=== PATIENT | male | born 1950 | race Hispanic/Latino ===

== ENCOUNTER 2017-05-02 10:21 | Emergency (ER) | payer OTHER ==
[2017-05-02 10:41] LABS: BASOPHILS % (AUTO) 0.6 % (0.0-5.0); EOSINOPHILS % (AUTO) 2.7 % (0.0-8.0); HEMATOCRIT 47.2 % (42-54); LYMPHOCYTES % (AUTO) 23.8 % (21.0-51.0); MEAN CORPUSCULAR HEMOGLOBIN 30.6 pg (27.0-33.0); MEAN CORPUSCULAR HGB CONC 34.9 g/dL (32.0-36.0); MEAN CORPUSCULAR VOLUME 87.8 fL (79-99); MONOCYTES % (AUTO) 7.1 % (3.0-13.0); NEUTROPHILS % (AUTO) 65.8 % (40.0-77.0); NUCLEATED RED BLOOD CELLS 0.1 % (0.0-0.19); PLATELET COUNT (AUTO) 219 K/uL (130-400); RED BLOOD CELL COUNT(AUTO) 5.38 MIL/uL (4.50-6.20); RED CELL DISTRIBUTION WIDTH 12.7 % (11.0-15.5); WHITE BLOOD COUNT (AUTO) 6.9 K/uL (4.8-10.8)
[2017-05-02 10:53] LABS: POTASSIUM 3.7 mmol/L (3.5-5.1)
[2017-05-02 10:55] LABS: INR 0.9 (0.85-1.15); PARTIAL THROMBOPLASTIN TIME 27.3 SEC (26.3-35.5); PROTHROMBIN TIME 9.5 SEC (9.6-11.6)
[2017-05-02 10:57] LABS: ALBUMIN 3.8 g/dL (3.5-5.0); BILIRUBIN,TOTAL 0.6 mg/dL (0.2-1.0); TOTAL PROTEIN, SERUM 7.4 g/dL (6.0-8.3)
[2017-05-02 10:58] LABS: AMPHET/METH SCREEN,URINE NEGATIVE (NEGATIVE); BARBITURATE SCREEN, URINE NEGATIVE (NEGATIVE); BENZODIAZEPINES SCREEN,URINE NEGATIVE (NEGATIVE); CANNABINOID SCREEN,URINE NEGATIVE (NEGATIVE); COCAINE SCREEN,URINE NEGATIVE (NEGATIVE); OPIATE SCREEN,URINE NEGATIVE (NEGATIVE); PHENCYCLIDINE SCREEN,URINE NEGATIVE (NEGATIVE)
[2017-05-02 11:01] LABS: RAPID GROUP A STREP NEGATIVE (NEGATIVE)
[2017-05-02] MEDS ORDERED: ACETAMINOPHEN-CODEINE ELIXIR 5 ML UDCUP ONE (11:14)
[2017-05-02] MEDS ORDERED: HYDROXYZINE HCL 25 MG TABLET ONE (11:17)
[2017-05-02 11:33] LABS: B-TYPE NATRIURETIC PEPTIDE 92 pg/mL (0-100)
== END 2017-05-02 13:52 | disposition home or self-care (01) ==
LOC: EDH 10:21
DX: R07.89 Other chest pain (principal); F41.9 Anxiety disorder, unspecified; F43.9 Reaction to severe stress, unspecified; E11.9 Type 2 diabetes mellitus without complications; E78.5 Hyperlipidemia, unspecified; I10 Essential (primary) hypertension; Z79.82 Long term (current) use of aspirin; Z79.899 Other long term (current) drug therapy; Z72.0 Tobacco use
CPT/HCPCS: 36415; 71045; 80053; 80305; 83605; 83690; 83880; 84484; 85025; 85610; 85730; 87804; 87880; 93005

== ENCOUNTER 2017-08-15 10:40 | Inpatient (IN) | payer OTHER ==
[~2017-08-15] VITALS: Ht 180.3 cm; Wt 84.8 kg
[2017-08-15 11:19] LABS: CREATININE 1.1 mg/dL (0.5-1.5); POTASSIUM 4.4 mmol/L (3.5-5.1)
[2017-08-15 11:25] LABS: ALBUMIN 3.5 g/dL (3.5-5.0); BASOPHILS % (AUTO) 0.4 % (0.0-5.0); BILIRUBIN,TOTAL 0.4 mg/dL (0.2-1.0); EOSINOPHILS % (AUTO) 3.3 % (0.0-8.0); HEMATOCRIT 46.5 % (42-54); LYMPHOCYTES % (AUTO) 23.8 % (21.0-51.0); MEAN CORPUSCULAR HEMOGLOBIN 32.5 pg (27.0-33.0); MEAN CORPUSCULAR HGB CONC 35.7 g/dL (32.0-36.0); MONOCYTES % (AUTO) 7.5 % (3.0-13.0); NUCLEATED RED BLOOD CELLS 0.1 % (0.0-0.19); PLATELET COUNT (AUTO) 220 K/uL (130-400); RED BLOOD CELL COUNT(AUTO) 5.11 MIL/uL (4.50-6.20); RED CELL DISTRIBUTION WIDTH 13.6 % (11.0-15.5); TOTAL PROTEIN, SERUM 7.3 g/dL (6.0-8.3); WHITE BLOOD COUNT (AUTO) 6.7 K/uL (4.8-10.8)
[2017-08-15 11:35] LABS: APPEARANCE,URINE Clear (CLEAR); BILIRUBIN,URINE Negative (NEGATIVE); COLOR,URINE Yellow (YELLOW); GLUCOSE, URINE (UA) Negative (NEGATIVE); KETONES,URINE Negative (NEGATIVE); LEUKOCYTE ESTERASE ,URINE Negative (NEGATIVE); NITRATE,URINE Negative (NEGATIVE); OCCULT BLOOD,URINE Negative (NEGATIVE); PROTEIN,URINE Negative (NEGATIVE); UROBILINOGEN,URINE 0.2 mg/dL (0.2-1.0)
[2017-08-15 11:41] LABS: AMPHET/METH SCREEN,URINE NEGATIVE (NEGATIVE); BARBITURATE SCREEN, URINE NEGATIVE (NEGATIVE); BENZODIAZEPINES SCREEN,URINE NEGATIVE (NEGATIVE); CANNABINOID SCREEN,URINE NEGATIVE (NEGATIVE); COCAINE SCREEN,URINE NEGATIVE (NEGATIVE); OPIATE SCREEN,URINE NEGATIVE (NEGATIVE); PHENCYCLIDINE SCREEN,URINE NEGATIVE (NEGATIVE)
[2017-08-15 11:52] LABS: INR 0.91 (0.85-1.15); PARTIAL THROMBOPLASTIN TIME 30.1 SEC (26.3-35.5); PROTHROMBIN TIME 9.6 SEC (9.6-11.6)
[2017-08-15] MEDS ORDERED: ACETAMINOPHEN 325 MG TAB ONE (13:06)
[2017-08-15] MEDS ORDERED: ASPIRIN 325 MG TABLET ONE (13:06)
[2017-08-15] MEDS ORDERED: NIFEDIPINE ER 30 MG TAB PO ONE (14:09)
[2017-08-15 16:15] VITALS: BP 179/108
[2017-08-15] MEDS ORDERED: HYDRALAZINE HCL 20 MG/ML VIAL ONE (16:38)
[2017-08-15] MEDS ORDERED: DEXTROSE 50%-WATER 50 ML DISP.SYRIN IV PRN (16:45)
[2017-08-15] MEDS ORDERED: HYDRALAZINE HCL 20 MG/ML VIAL IV PRN (16:45)
[2017-08-15] MEDS ORDERED: GLUCAGON 1MG KIT 1 MG ML IM PRN (16:45)
[2017-08-15 20:10] VITALS: BP 138/100
[2017-08-15] MEDS: INSULIN HUMULIN R 100 UNIT/ML 3ML SQ SCH (21:00)
[2017-08-15] MEDS: ACETAMINOPHEN 325 MG TAB PO PRN (21:02)
[2017-08-15 22:02] VITALS: BP 148/86
[2017-08-16 00:20] VITALS: BP 153/96
[2017-08-16] MEDS: ACETAMINOPHEN 325 MG TAB PO PRN ×3 (01:06→20:21)
[2017-08-16 01:18] VITALS: BP 151/97
[2017-08-16 04:20] VITALS: BP 151/96
[2017-08-16 05:29] LABS: HEMATOCRIT 47.9 % (42-54); MEAN CORPUSCULAR HEMOGLOBIN 31.8 pg (27.0-33.0); MEAN CORPUSCULAR HGB CONC 35.2 g/dL (32.0-36.0); MEAN CORPUSCULAR VOLUME 90.4 fL (79-99); PLATELET COUNT (AUTO) 222 K/uL (130-400); RED BLOOD CELL COUNT(AUTO) 5.29 MIL/uL (4.50-6.20); RED CELL DISTRIBUTION WIDTH 13.4 % (11.0-15.5); WHITE BLOOD COUNT (AUTO) 7.9 K/uL (4.8-10.8)
[2017-08-16 06:01] LABS: CREATININE 1.1 mg/dL (0.5-1.5); POTASSIUM 3.5 mmol/L (3.5-5.1)
[2017-08-16] MEDS: INSULIN HUMULIN R 100 UNIT/ML 3ML SQ SCH ×4 (06:30→21:00)
[2017-08-16 08:00] VITALS: BP 155/97
[2017-08-16] MEDS: NIFEDIPINE ER 30 MG TAB PO SCH (08:20)
[2017-08-16 11:00] VITALS: BP 164/97
[2017-08-16] MEDS: HYDRALAZINE HCL 20 MG/ML VIAL IV PRN (12:23)
[2017-08-16 16:00] VITALS: BP 163/91
[2017-08-17] VITALS (10 sets, daily range): BP systolic 125–170; BP diastolic 68–102
[2017-08-17] MEDS: HYDRALAZINE HCL 20 MG/ML VIAL IV PRN (00:20)
[2017-08-17] MEDS ORDERED: ALPRAZOLAM 0.5 MG TABLET PO ONE (01:30)
[2017-08-17] MEDS: INSULIN HUMULIN R 100 UNIT/ML 3ML SQ SCH ×4 (06:32→22:49)
[2017-08-17 06:55] LABS: BASOPHILS % (AUTO) 0.4 % (0.0-5.0); EOSINOPHILS % (AUTO) 2.8 % (0.0-8.0); HEMATOCRIT 46.5 % (42-54); LYMPHOCYTES % (AUTO) 22.7 % (21.0-51.0); MEAN CORPUSCULAR HEMOGLOBIN 31.8 pg (27.0-33.0); MEAN CORPUSCULAR HGB CONC 35.1 g/dL (32.0-36.0); MEAN CORPUSCULAR VOLUME 90.7 fL (79-99); MONOCYTES % (AUTO) 8.9 % (3.0-13.0); NEUTROPHILS % (AUTO) 65.2 % (40.0-77.0); NUCLEATED RED BLOOD CELLS 0.1 % (0.0-0.19); PLATELET COUNT (AUTO) 217 K/uL (130-400); RED BLOOD CELL COUNT(AUTO) 5.13 MIL/uL (4.50-6.20); RED CELL DISTRIBUTION WIDTH 13.3 % (11.0-15.5); WHITE BLOOD COUNT (AUTO) 8.2 K/uL (4.8-10.8)
[2017-08-17 07:12] LABS: CREATININE 1.1 mg/dL (0.5-1.5); POTASSIUM 3.4 mmol/L (3.5-5.1)
[2017-08-17] MEDS: NIFEDIPINE ER 30 MG TAB PO SCH (08:57)
[2017-08-17] MEDS ORDERED: METOPROLOL TARTRATE 25 MG TAB PO SCH (13:00)
[2017-08-17] MEDS ORDERED: ASPIRIN 325 MG TABLET PO SCH (14:00)
[2017-08-17] MEDS: ENOXAPARIN SODIUM 80 MG/0.8 ML SQ SCH ×2 (15:23→20:25)
[2017-08-17] MEDS: NITROGLYCERIN 1GM/1 INCH PACKET TD SCH (15:23)
[2017-08-17] MEDS: METOPROLOL TARTRATE 25 MG TAB PO SCH (20:24)
[2017-08-17] MEDS ORDERED: LORAZEPAM 0.5 MG TABLET PO SCH (21:00)
[2017-08-18] VITALS: BP 127/84
[2017-08-18 04:00] VITALS: BP 139/93
[2017-08-18] MEDS: NITROGLYCERIN 1GM/1 INCH PACKET TD SCH ×2 (04:36→11:16)
[2017-08-18 05:04] LABS: HEMOGLOBIN A1C 7.1 % (4.0-6.0)
[2017-08-18 05:22] LABS: MAGNESIUM 2.1 mg/dL (1.80-2.40); POTASSIUM 3.5 mmol/L (3.5-5.1); THYROID STIMULATING HORMONE 3.71 uIU/mL (0.36-3.74)
[2017-08-18] MEDS ORDERED: REGADENOSON 0.4 MG/5 ML PF SYG IVP SCH (07:30)
[2017-08-18] MEDS: INSULIN HUMULIN R 100 UNIT/ML 3ML SQ SCH (07:30)
[2017-08-18 08:20] VITALS: BP 139/92
[2017-08-18] MEDS ORDERED: LOSARTAN 50 MG TABLET PO SCH (09:00)
[2017-08-18] MEDS: ENOXAPARIN SODIUM 80 MG/0.8 ML SQ SCH (11:15)
[2017-08-18] MEDS: METOPROLOL TARTRATE 25 MG TAB PO SCH (11:16)
[2017-08-18 12:19] VITALS: BP 156/91
[2017-08-18 16:00] VITALS: BP 140/97
== END 2017-08-18 18:35 | disposition home or self-care (01) | DRG 305 ==
LOC: EDH 10:40 → EDHIP 12:53 → OBSVTOIN 12:53 → 3DH 16:09 → 2DH 08-17 15:59
PROVIDERS: ADMIT Internal Medicine Nephrology; ATTEND Internal Medicine Nephrology
DX: I16.0 Hypertensive urgency (principal); E11.21 Type 2 diabetes mellitus with diabetic nephropathy; G93.89 Other specified disorders of brain; I20.0 Unstable angina; E78.5 Hyperlipidemia, unspecified; E87.6 Hypokalemia; F10.10 Alcohol abuse, uncomplicated; F17.210 Nicotine dependence, cigarettes, uncomplicated; I10 Essential (primary) hypertension; Z86.73 Personal history of transient ischemic attack (TIA), and cerebral infarction without residual deficits; Z83.3 Family history of diabetes mellitus; Z82.49 Family history of ischemic heart disease and other diseases of the circulatory system
CPT/HCPCS: 36415; 70450; 71045; 72100; 76770; 78452; 80048; 80053; 80061; 80305; 81003; 82550; 82948; 83036; 83735; 83835; 84443; 84484; 85025; 85027; 85610; 85730; 86592; 93005; 93017; 93306; 96374; A9500; G0480; J0360; J1650; J1815; J2785

== ENCOUNTER 2017-09-03 07:25 | Inpatient (IN) | payer OTHER ==
[~2017-09-03] VITALS: Ht 180.3 cm; Wt 85.2 kg
[2017-09-03] MEDS ORDERED: SODIUM CHLORIDE 0.9% 1000ML 1,000 ML IV ONE (08:10)
[2017-09-03] MEDS ORDERED: LABETALOL HCL 5 MG/ML 20ML VIAL IV ONE (08:11)
[2017-09-03 08:17] LABS: BASOPHILS % (AUTO) 0.8 % (0.0-5.0); EOSINOPHILS % (AUTO) 3.4 % (0.0-8.0); HEMATOCRIT 45.6 % (42-54); LYMPHOCYTES % (AUTO) 22.9 % (21.0-51.0); MEAN CORPUSCULAR HEMOGLOBIN 31.2 pg (27.0-33.0); MEAN CORPUSCULAR HGB CONC 34.5 g/dL (32.0-36.0); MEAN CORPUSCULAR VOLUME 90.2 fL (79-99); MONOCYTES % (AUTO) 8.6 % (3.0-13.0); NEUTROPHILS % (AUTO) 64.3 % (40.0-77.0); NUCLEATED RED BLOOD CELLS 0.1 % (0.0-0.19); PLATELET COUNT (AUTO) 219 K/uL (130-400); RED BLOOD CELL COUNT(AUTO) 5.05 MIL/uL (4.50-6.20); RED CELL DISTRIBUTION WIDTH 12.4 % (11.0-15.5)
[2017-09-03 08:43] LABS: PARTIAL THROMBOPLASTIN TIME 29.9 SEC (26.3-35.5)
[2017-09-03 08:58] LABS: CREATININE 1.1 mg/dL (0.5-1.5); INR 0.89 (0.85-1.15); PROTHROMBIN TIME 9.4 SEC (9.6-11.6)
[2017-09-03] MEDS ORDERED: ONDANSETRON HCL 4 MG/2 ML VIAL ONE (08:58)
[2017-09-03] MEDS ORDERED: MORPHINE SULFATE 4 MG/1ML SYG ONE (08:58)
[2017-09-03 09:14] LABS: ALBUMIN 3.6 g/dL (3.5-5.0); BILIRUBIN,TOTAL 0.4 mg/dL (0.2-1.0); TOTAL PROTEIN, SERUM 7.4 g/dL (6.0-8.3)
[2017-09-03 09:31] LABS: APPEARANCE,URINE Clear (CLEAR); BILIRUBIN,URINE Negative (NEGATIVE); COLOR,URINE Yellow (YELLOW); GLUCOSE, URINE (UA) 250 mg/dL (NEGATIVE); KETONES,URINE Negative (NEGATIVE); LEUKOCYTE ESTERASE ,URINE Negative (NEGATIVE); NITRATE,URINE Negative (NEGATIVE); OCCULT BLOOD,URINE Negative (NEGATIVE); PROTEIN,URINE Trace (NEGATIVE); UROBILINOGEN,URINE 0.2 mg/dL (0.2-1.0)
[2017-09-03 09:49] LABS: BACTERIA,URINE Few /HPF (None Seen)
[2017-09-03 09:51] LABS: RBC,URINE None Seen /HPF (0-1); WBC,URINE 0-1 /HPF (0-1)
[2017-09-03 09:52] LABS: SQUAMOUS EPITHELIAL CELL,UR Rare /HPF (0-2)
[2017-09-03] MEDS ORDERED: CALCIUM CHLORIDE 100 MG/ML 10 ML SYG IVP ONE (12:00)
[2017-09-03] MEDS ORDERED: HEPARIN SODIUM 1000UNIT/ML 10ML VIAL IV ONE (12:00)
[2017-09-03] MEDS ORDERED: HEPARIN SODIUM 10000 UNIT/ML 1ML VIAL IJ ONE (12:00)
[2017-09-03 14:04] VITALS: BP 194/117
[2017-09-03] MEDS ORDERED: ASPI-1197 PO (14:21)
[2017-09-03] MEDS ORDERED: METO25TA6 PO (14:21)
[2017-09-03] MEDS ORDERED: METF500T6 PO (14:21)
[2017-09-03] MEDS ORDERED: LOSA50TA37 PO (14:21)
[2017-09-03] MEDS ORDERED: ATOR10TA69 PO (14:21)
[2017-09-03] MEDS ORDERED: HYDRALAZINE HCL 20 MG/ML VIAL IV PRN (14:45)
[2017-09-03] MEDS ORDERED: HYDRALAZINE HCL 20 MG/ML VIAL ONE (14:47)
[2017-09-03 15:58] VITALS: BP 167/96
[2017-09-03 17:46] LABS: CREATINE KINASE MB 6.8 ng/mL (0.5-3.6)
[2017-09-03 17:50] LABS: TROPONIN I 1.3 ng/mL (0.00-0.06)
[2017-09-03 19:47] VITALS: BP 165/89
[2017-09-03] MEDS: METOPROLOL TARTRATE 25 MG TAB PO SCH (19:55)
[2017-09-03] MEDS: ATORVASTATIN CALCIUM 10 MG TABLET PO SCH (19:55)
[2017-09-03] MEDS: FAMOTIDINE 20MG TAB 20 MG TAB PO SCH (19:56)
[2017-09-03] MEDS: INSULIN HUMULIN R 100 UNIT/ML 3ML SQ SCH (20:17)
[2017-09-03] MEDS ORDERED: ENOXAPARIN SODIUM 1 MG/KG SQ SCH (21:00)
[2017-09-04] VITALS (7 sets, daily range): BP systolic 135–183; BP diastolic 80–99
[2017-09-04 01:43] LABS: CREATINE KINASE MB 5.1 ng/mL (0.5-3.6)
[2017-09-04 01:55] LABS: TROPONIN I 3.62 ng/mL (0.00-0.06)
[2017-09-04 04:21] LABS: HEMATOCRIT 40.5 % (42-54); MEAN CORPUSCULAR HEMOGLOBIN 32.4 pg (27.0-33.0); MEAN CORPUSCULAR HGB CONC 36.2 g/dL (32.0-36.0); MEAN CORPUSCULAR VOLUME 89.4 fL (79-99); PLATELET COUNT (AUTO) 207 K/uL (130-400); RED BLOOD CELL COUNT(AUTO) 4.53 MIL/uL (4.50-6.20); RED CELL DISTRIBUTION WIDTH 12.6 % (11.0-15.5); WHITE BLOOD COUNT (AUTO) 8.1 K/uL (4.8-10.8)
[2017-09-04 04:33] LABS: CREATININE 1.1 mg/dL (0.5-1.5); POTASSIUM 3.6 mmol/L (3.5-5.1)
[2017-09-04] MEDS: INSULIN HUMULIN R 100 UNIT/ML 3ML SQ SCH ×4 (05:41→21:13)
[2017-09-04] MEDS ORDERED: ENOXAPARIN SODIUM 1 MG/KG SQ SCH (07:20)
[2017-09-04] MEDS ORDERED: ACETAMINOPHEN 325 MG TAB ONE (07:41)
[2017-09-04] MEDS: ASPIRIN 81MG TAB.CHEW PO SCH (07:45)
[2017-09-04] MEDS: METFORMIN HCL 500 MG TABLET PO SCH (07:45)
[2017-09-04] MEDS: FAMOTIDINE 20MG TAB 20 MG TAB PO SCH ×2 (07:45→20:02)
[2017-09-04] MEDS: METOPROLOL TARTRATE 25 MG TAB PO SCH ×2 (07:45→20:02)
[2017-09-04] MEDS: ENOXAPARIN SODIUM 80 MG/0.8 ML SQ SCH ×3 (07:46→20:18)
[2017-09-04] MEDS ORDERED: ENOXAPARIN SODIUM 40 MG/0.4 ML SYRINGE SQ SCH (09:00)
[2017-09-04] MEDS ORDERED: LOSARTAN 50 MG TABLET PO SCH (09:00)
[2017-09-04] MEDS: NITROGLYCERIN 1GM/1 INCH PACKET TD SCH ×3 (09:25→20:03)
[2017-09-04] MEDS ORDERED: SODIUM CHLORIDE 0.9% 500ML 500 ML IV SCH (12:54)
[2017-09-04] MEDS ORDERED: CLOPIDOGREL BISULFATE 75 MG TAB PO SCH (13:00)
[2017-09-04] MEDS: ATORVASTATIN CALCIUM 10 MG TABLET PO SCH (20:02)
[2017-09-05] VITALS (15 sets, daily range): BP systolic 118–180; BP diastolic 63–99
[2017-09-05] MEDS: NITROGLYCERIN 1GM/1 INCH PACKET TD SCH ×4 (02:24→21:30)
[2017-09-05] MEDS: INSULIN HUMULIN R 100 UNIT/ML 3ML SQ SCH ×4 (06:21→21:00)
[2017-09-05] MEDS ORDERED: LIDOCAINE HCL 2% 20ML ONE (07:19)
[2017-09-05] MEDS ORDERED: ISOVUE-370 50ML VIAL IV ONE (07:19)
[2017-09-05] MEDS ORDERED: IOPAMIDOL-370 75 ML VIAL IV ONE (07:19)
[2017-09-05] MEDS ORDERED: HEPARIN SODIUM 1000UNIT/ML 10ML VIAL ONE (07:19)
[2017-09-05] MEDS: ENOXAPARIN SODIUM 80 MG/0.8 ML SQ SCH (07:48)
[2017-09-05] MEDS: METFORMIN HCL 500 MG TABLET PO SCH (07:48)
[2017-09-05] MEDS ORDERED: LABETALOL HCL 5 MG/ML 20ML VIAL IV ONE (08:00)
[2017-09-05] MEDS ORDERED: NITROGLYCERIN 4.1 GM SPRAY TL ONE (08:07)
[2017-09-05] MEDS ORDERED: NITROGLYCERIN 50 MG/D5% WATER 1 BOT ONE (08:07)
[2017-09-05] MEDS ORDERED: METOPROLOL TARTRATE 50 MG TAB ONE (08:13)
[2017-09-05] MEDS: METOPROLOL TARTRATE 50 MG TAB PO SCH ×3 (08:30→21:29)
[2017-09-05] MEDS ORDERED: SODIUM CHLORIDE 0.9% 1000ML 1,000 ML IV SCH (08:34)
[2017-09-05] MEDS ORDERED: ACETAMINOPHEN-CODEINE 300/30MG TAB PO PRN ×2 (08:45)
[2017-09-05] MEDS ORDERED: HYDROCHLOROTHIAZIDE 25 MG TABLET PO SCH (09:00)
[2017-09-05] MEDS: ASPIRIN 81MG TAB.CHEW PO SCH (09:00)
[2017-09-05] MEDS ORDERED: LOSARTAN 100 MG TABLET PO SCH (09:00)
[2017-09-05] MEDS: FAMOTIDINE 20MG TAB 20 MG TAB PO SCH ×2 (09:38→21:29)
[2017-09-05 15:10] LABS: HEMOGLOBIN A1C 7.7 % (4.0-6.0)
[2017-09-05 15:13] LABS: CHOLESTEROL 141 mg/dL (<200); HDL CHOLESTEROL 36 mg/dL (29-71); LDL DIRECT 82 mg/dL (0-99); TRIGLYCERIDES 205 mg/dL (30-200)
[2017-09-05] MEDS ORDERED: CEFUROXIME SODIUM 1.5 GM VIAL IVP SCH (15:30)
[2017-09-05] MEDS: ATORVASTATIN CALCIUM 10 MG TABLET PO SCH (21:29)
[2017-09-06] VITALS (12 sets, daily range): BP systolic 111–165; BP diastolic 55–91
[2017-09-06 03:37] LABS: HEMATOCRIT 39.7 % (42-54); MEAN CORPUSCULAR HEMOGLOBIN 31.3 pg (27.0-33.0); MEAN CORPUSCULAR HGB CONC 34.8 g/dL (32.0-36.0); MEAN CORPUSCULAR VOLUME 89.7 fL (79-99); PLATELET COUNT (AUTO) 203 K/uL (130-400); RED BLOOD CELL COUNT(AUTO) 4.42 MIL/uL (4.50-6.20); RED CELL DISTRIBUTION WIDTH 12.4 % (11.0-15.5)
[2017-09-06 03:47] LABS: INR 0.93 (0.85-1.15); PARTIAL THROMBOPLASTIN TIME 29.9 SEC (26.3-35.5); PROTHROMBIN TIME 9.8 SEC (9.6-11.6)
[2017-09-06 03:49] LABS: CREATININE 1.1 mg/dL (0.5-1.5); POTASSIUM 3.7 mmol/L (3.5-5.1)
[2017-09-06] MEDS: NITROGLYCERIN 1GM/1 INCH PACKET TD SCH (04:58)
[2017-09-06] MEDS ORDERED: BACITRACIN 50,000 UNIT VIAL ONE (05:32)
[2017-09-06] MEDS ORDERED: HEPARIN SODIUM 1000UNIT/ML 10ML VIAL ONE ×2 (05:32→07:18)
[2017-09-06] MEDS ORDERED: PAPAVERINE HCL 30 MG/ML 2ML VIAL ONE (05:32)
[2017-09-06] MEDS ORDERED: CEFUROXIME 1.5GM+NS 100ML 100 ML IV SCH ×2 (06:00→19:00)
[2017-09-06] MEDS: METOPROLOL TARTRATE 50 MG TAB PO SCH (06:12)
[2017-09-06] MEDS ORDERED: LIDOCAINE HCL MDV 0.5% 50ML VIAL IJ ONE (06:25)
[2017-09-06] MEDS ORDERED: DELNIDO FORMULA 0 BAG IV ONE (06:26)
[2017-09-06] MEDS ORDERED: THROMBIN-JMI 5000 UNIT/VIAL TP ONE (06:26)
[2017-09-06] MEDS ORDERED: NITROGLYCERIN 50 MG/D5% WATER 1 BOT ONE (06:33)
[2017-09-06] MEDS ORDERED: ROCURONIUM BROMIDE 10MG/1ML 5ML VL ONE ×3 (06:39→11:17)
[2017-09-06] MEDS ORDERED: NEOSTIGMINE 5MG/5ML SYR IV ONE (07:18)
[2017-09-06] MEDS ORDERED: PROTAMINE SULFATE 10 MG/ML 25ML VIAL IV ONE (07:18)
[2017-09-06] MEDS ORDERED: LIDOCAINE PF 2% 5ML ABBOJECT ONE (07:18)
[2017-09-06] MEDS ORDERED: GLYCOPYRROLATE 0.2 MG/ML 5 ML VIAL ONE (07:18)
[2017-09-06] MEDS ORDERED: ESMOLOL HCL 10 MG/ML 10 ML VIAL ONE (07:18)
[2017-09-06] MEDS ORDERED: MILRINONE-D5W 20 MG/100 ML 0 ML IV ONE (07:19)
[2017-09-06] MEDS ORDERED: FENTANYL CITRATE PF 50 MCG/1 ML 20ML VIAL IJ ONE (07:19)
[2017-09-06] MEDS ORDERED: MIDAZOLAM HCL 1 MG/ML 5ML VIAL ONE (07:19)
[2017-09-06] MEDS ORDERED: PROPOFOL 10 MG/ML 20ML VIAL IV ONE (07:19)
[2017-09-06] MEDS ORDERED: NOREPINEPHRINE BITARTRATE 1 MG/1 ML ML IV ONE ×2 (07:19→12:08)
[2017-09-06] MEDS ORDERED: AMINOCAPROIC ACID 250 MG/ML 20 ML VIAL IV ONE (07:19)
[2017-09-06] MEDS ORDERED: EPINEPHRINE 1 MG/ML AMPULE ONE (07:19)
[2017-09-06] MEDS: INSULIN HUMULIN R 100 UNIT/ML 3ML SQ SCH (07:30)
[2017-09-06] MEDS ORDERED: SODIUM BICARB 50MEQ 50ML VIAL ONE ×4 (09:26→16:36)
[2017-09-06 09:34] LABS: ABG BASE EXCESS 1.9 mmol/L (-2.0-3.0); ABG HCO3 26.1 mmol/L (21.0-28.0); ABG OXYGEN SATURATION 99.1 % (95.0-99.0); ABG PCO2 39 mmHg (35-48)
[2017-09-06] MEDS ORDERED: SODIUM CHLORIDE 0.9% 500ML 500 ML IV SCH (10:57)
[2017-09-06] MEDS ORDERED: NITROGLYCERIN 50 MG/D5% WATER 250 BOT IV SCH (11:00)
[2017-09-06] MEDS ORDERED: INSULIN REGULAR, HUMAN 3ML 100 UNIT in SODIUM CHLORIDE 0.9% 99 ML IV SCH ×2 (11:00)
[2017-09-06] MEDS ORDERED: NOREPINEPHRINE 4MG/NS 250ML 250 ML IV PRN (11:00)
[2017-09-06] MEDS ORDERED: MORPHINE SULFATE 2 MG/ML 1ML SYG IV PRN (11:00)
[2017-09-06] MEDS ORDERED: SODIUM CHLORIDE 0.9% 1000ML 1,000 ML IV SCH (11:00)
[2017-09-06] MEDS ORDERED: ONDANSETRON HCL 4 MG/2 ML VIAL IV PRN (11:00)
[2017-09-06] MEDS ORDERED: ACETAMINOPHEN 650 MG SUPPOSITORY RC PRN (11:00)
[2017-09-06] MEDS ORDERED: DEXTROSE 50%-WATER 50 ML DISP.SYRIN IV PRN (11:00)
[2017-09-06] MEDS ORDERED: POTASSIUM PHOS 15 mMOL+NS250ML 250 ML IV PRN (11:00)
[2017-09-06] MEDS ORDERED: EPINEPHRINE 2 MG in SODIUM CHLORIDE 0.9% 250 ML IV PRN (11:00)
[2017-09-06] MEDS ORDERED: ACETAMINOPHEN 325 MG TAB PO PRN (11:00)
[2017-09-06] MEDS ORDERED: SODIUM BICARB 8.4% 50ML SYRINGE IV PRN (11:00)
[2017-09-06] MEDS ORDERED: SODIUM CHLORIDE 0.9% 250 ML IV PRN (11:00)
[2017-09-06] MEDS ORDERED: GLUCAGON 1MG KIT 1 MG ML IM PRN (11:00)
[2017-09-06] MEDS ORDERED: SODIUM CHLORIDE 0.9% 10 ML VIAL IVP PRN (11:00)
[2017-09-06] MEDS ORDERED: AMINOCAPROIC ACID 15,000 MG in SODIUM CHLORIDE 0.9% 250 ML IV SCH (11:00)
[2017-09-06] MEDS ORDERED: NICARDIPINE HCL 100 MG in SODIUM CHLORIDE 0.9% 60 ML IV PRN (11:00)
[2017-09-06] MEDS ORDERED: PROPOFOL 1000 MG/100 ML 100 ML IV PRN (11:00)
[2017-09-06 11:07] LABS: ABG BASE EXCESS -1.5 mmol/L (-2.0-3.0); ABG HCO3 22.8 mmol/L (21.0-28.0); ABG OXYGEN SATURATION 99.5 % (95.0-99.0); ABG PCO2 37 mmHg (35-48)
[2017-09-06] MEDS ORDERED: CEFUROXIME SODIUM 1.5 GM VIAL ONE (12:35)
[2017-09-06 14:01] LABS: ABG BASE EXCESS -1.7 mmol/L (-2.0-3.0); ABG HCO3 23.3 mmol/L (21.0-28.0); ABG OXYGEN SATURATION 98.7 % (95.0-99.0); ABG PCO2 41 mmHg (35-48)
[2017-09-06 14:14] LABS: HEMATOCRIT 40.8 % (42-54); MEAN CORPUSCULAR HEMOGLOBIN 31.4 pg (27.0-33.0); MEAN CORPUSCULAR HGB CONC 34.6 g/dL (32.0-36.0); MEAN CORPUSCULAR VOLUME 90.7 fL (79-99); PLATELET COUNT (AUTO) 198 K/uL (130-400); RED CELL DISTRIBUTION WIDTH 12.5 % (11.0-15.5); WHITE BLOOD COUNT (AUTO) 21.5 K/uL (4.8-10.8)
[2017-09-06] MEDS: ALBUMIN (HUMAN) 5% 250 ML IV PRN ×2 (14:18→15:18)
[2017-09-06] MEDS: MORPHINE SULFATE 4 MG/1ML SYG IV PRN (14:20)
[2017-09-06] MEDS: CALCIUM GLUCONATE 1 GM in SODIUM CHLORIDE 0.9% 50 ML IV PRN (14:26)
[2017-09-06 14:29] LABS: CREATININE 1.2 mg/dL (0.5-1.5); MAGNESIUM 1.5 mg/dL (1.80-2.40); PHOSPHORUS 5.7 mg/dL (2.5-4.9)
[2017-09-06] MEDS: MAGNESIUM 2GM PREMIX 50ML 50 ML IV PRN ×2 (15:41→23:50)
[2017-09-06 16:15] LABS: ABG BASE EXCESS -0.2 mmol/L (-2.0-3.0); ABG HCO3 25.5 mmol/L (21.0-28.0); ABG OXYGEN SATURATION 97.9 % (95.0-99.0); ABG PCO2 45 mmHg (35-48)
[2017-09-06] MEDS: TRAMADOL HCL 50 MG TABLET PO PRN (16:42)
[2017-09-06 17:35] LABS: ABG BASE EXCESS 0.8 mmol/L (-2.0-3.0); ABG HCO3 26.7 mmol/L (21.0-28.0); ABG PCO2 47 mmHg (35-48)
[2017-09-06] MEDS: CEFUROXIME SODIUM 1.5 GM VIAL IVP SCH (18:18)
[2017-09-06] MEDS ORDERED: KETOROLAC TROMETHAMINE 30MG/ML IV SCH ×2 (20:00→21:00)
[2017-09-06] MEDS ORDERED: METOPROLOL TARTRATE 25 MG TAB ONE (21:49)
[2017-09-06] MEDS: METOPROLOL TARTRATE 25 MG TAB PO SCH (22:00)
[2017-09-06 23:00] LABS: MAGNESIUM 1.9 mg/dL (1.80-2.40); POTASSIUM 3.6 mmol/L (3.5-5.1)
[2017-09-07] VITALS (18 sets, daily range): BP systolic 110–150; BP diastolic 62–94
[2017-09-07] MEDS: POTASSIUM CHLORIDE 20MEQ/100ML 100 ML IV PRN ×2 (01:14→02:07)
[2017-09-07 04:24] LABS: HEMATOCRIT 36.3 % (42-54); MEAN CORPUSCULAR HEMOGLOBIN 31.1 pg (27.0-33.0); MEAN CORPUSCULAR HGB CONC 34.1 g/dL (32.0-36.0); MEAN CORPUSCULAR VOLUME 91.2 fL (79-99); PLATELET COUNT (AUTO) 141 K/uL (130-400); RED BLOOD CELL COUNT(AUTO) 3.98 MIL/uL (4.50-6.20); RED CELL DISTRIBUTION WIDTH 12.8 % (11.0-15.5); WHITE BLOOD COUNT (AUTO) 13.6 K/uL (4.8-10.8)
[2017-09-07 04:32] LABS: MAGNESIUM 2.4 mg/dL (1.80-2.40); PHOSPHORUS 3.9 mg/dL (2.5-4.9)
[2017-09-07] MEDS: CEFUROXIME SODIUM 1.5 GM VIAL IVP SCH ×2 (06:00→19:30)
[2017-09-07] MEDS: METOPROLOL TARTRATE 25 MG TAB PO SCH ×2 (06:01→12:56)
[2017-09-07] MEDS: TRAMADOL HCL 50 MG TABLET PO PRN ×3 (08:42→16:31)
[2017-09-07] MEDS: PANTOPRAZOLE SODIUM 40 MG TABLET.DR PO SCH (08:43)
[2017-09-07] MEDS: LOSARTAN 50 MG TABLET PO SCH (09:39)
[2017-09-07] MEDS: CALCIUM GLUCONATE 1 GM in SODIUM CHLORIDE 0.9% 50 ML IV PRN (14:58)
[2017-09-07] MEDS: FUROSEMIDE 20 MG TABLET PO SCH (16:32)
[2017-09-07] MEDS ORDERED: METOPROLOL TARTRATE 25 MG TAB PO SCH (21:00)
[2017-09-07] MEDS: POTASSIUM CHLORIDE 20 MEQ ERTAB PO SCH (21:45)
[2017-09-07] MEDS: ATORVASTATIN CALCIUM 20 MG TABLET PO SCH (21:45)
[2017-09-07] MEDS: METOCLOPRAMIDE 10 MG/2 ML VIAL IVP SCH (21:46)
[2017-09-07] MEDS: MORPHINE SULFATE 4 MG/1ML SYG IV PRN (21:46)
[2017-09-08 00:08] VITALS: BP 139/94
[2017-09-08] MEDS: METOCLOPRAMIDE 10 MG/2 ML VIAL IVP SCH ×4 (02:22→20:28)
[2017-09-08] MEDS: TRAMADOL HCL 50 MG TABLET PO PRN ×3 (02:26→17:04)
[2017-09-08 03:53] LABS: HEMATOCRIT 33.7 % (42-54); MEAN CORPUSCULAR HEMOGLOBIN 31.4 pg (27.0-33.0); MEAN CORPUSCULAR HGB CONC 34.3 g/dL (32.0-36.0); MEAN CORPUSCULAR VOLUME 91.5 fL (79-99); PLATELET COUNT (AUTO) 143 K/uL (130-400); RED BLOOD CELL COUNT(AUTO) 3.68 MIL/uL (4.50-6.20); RED CELL DISTRIBUTION WIDTH 12.5 % (11.0-15.5); WHITE BLOOD COUNT (AUTO) 13.7 K/uL (4.8-10.8)
[2017-09-08 04:02] LABS: CREATININE 1.1 mg/dL (0.5-1.5); POTASSIUM 3.7 mmol/L (3.5-5.1)
[2017-09-08 04:12] VITALS: BP 134/86
[2017-09-08] MEDS: POTASSIUM CHLORIDE 20MEQ/100ML 100 ML IV PRN (04:36)
[2017-09-08 07:00] VITALS: BP 147/80
[2017-09-08] MEDS: POTASSIUM CHLORIDE 20 MEQ ERTAB PO SCH ×2 (09:16→20:29)
[2017-09-08] MEDS: LOSARTAN 50 MG TABLET PO SCH (09:17)
[2017-09-08] MEDS: ENOXAPARIN SODIUM 30 MG/0.3 ML SQ SCH (09:17)
[2017-09-08] MEDS: PANTOPRAZOLE SODIUM 40 MG TABLET.DR PO SCH (09:17)
[2017-09-08] MEDS: FUROSEMIDE 20 MG TABLET PO SCH ×2 (09:19→16:58)
[2017-09-08 11:00] VITALS: BP 153/94
[2017-09-08] MEDS: ACETAMINOPHEN-CODEINE 300/30MG TAB PO PRN ×2 (13:39→20:29)
[2017-09-08 16:00] VITALS: BP 136/88
[2017-09-08 19:32] VITALS: BP 155/88
[2017-09-08] MEDS: ATORVASTATIN CALCIUM 20 MG TABLET PO SCH (20:28)
[2017-09-08] MEDS ORDERED: METOPROLOL TARTRATE 50 MG TAB PO SCH (21:00)
[2017-09-08] MEDS: INSULIN HUMULIN R 100 UNIT/ML 3ML SQ SCH (21:00)
[2017-09-09 00:17] VITALS: BP 148/85
[2017-09-09] MEDS: METOCLOPRAMIDE 10 MG/2 ML VIAL IVP SCH ×4 (02:42→20:44)
[2017-09-09] MEDS: TRAMADOL HCL 50 MG TABLET PO PRN ×2 (03:09→12:11)
[2017-09-09 03:54] VITALS: BP 146/93
[2017-09-09] MEDS: INSULIN HUMULIN R 100 UNIT/ML 3ML SQ SCH ×4 (06:11→21:00)
[2017-09-09 07:00] VITALS: BP 152/94
[2017-09-09] MEDS: ACETAMINOPHEN-CODEINE 300/30MG TAB PO PRN (07:23)
[2017-09-09] MEDS: HYDROCHLOROTHIAZIDE 25 MG TABLET PO SCH (09:23)
[2017-09-09] MEDS: METOPROLOL TARTRATE 50 MG TAB PO SCH ×2 (09:23→20:46)
[2017-09-09] MEDS: LOSARTAN 50 MG TABLET PO SCH (09:23)
[2017-09-09] MEDS: FUROSEMIDE 20 MG TABLET PO SCH ×2 (09:23→16:42)
[2017-09-09] MEDS: ASPIRIN 81MG TAB.CHEW PO SCH (09:24)
[2017-09-09] MEDS: POTASSIUM CHLORIDE 20 MEQ ERTAB PO SCH ×2 (09:24→20:45)
[2017-09-09] MEDS: PANTOPRAZOLE SODIUM 40 MG TABLET.DR PO SCH (09:24)
[2017-09-09] MEDS: DOCUSATE SODIUM 100 MG CAP PO SCH ×2 (09:24→20:45)
[2017-09-09] MEDS: ENOXAPARIN SODIUM 30 MG/0.3 ML SQ SCH (09:25)
[2017-09-09 11:00] VITALS: BP 148/98
[2017-09-09] MEDS: MAGNESIUM HYDROXIDE 30 ML/UDCUP PO PRN (13:43)
[2017-09-09 16:00] VITALS: BP 160/102
[2017-09-09 19:47] VITALS: BP 142/86
[2017-09-09] MEDS ORDERED: ALPRAZOLAM 0.5 MG TABLET PO PRN (20:30)
[2017-09-09] MEDS ORDERED: ALPRAZOLAM 0.5 MG TABLET ONE (20:37)
[2017-09-09] MEDS: ATORVASTATIN CALCIUM 20 MG TABLET PO SCH (20:45)
[2017-09-10] VITALS (7 sets, daily range): BP systolic 119–158; BP diastolic 74–94
[2017-09-10] MEDS: ACETAMINOPHEN-CODEINE 300/30MG TAB PO PRN ×2 (01:08→18:34)
[2017-09-10] MEDS: METOCLOPRAMIDE 10 MG/2 ML VIAL IVP SCH ×4 (02:22→22:34)
[2017-09-10 03:51] LABS: BASOPHILS % (AUTO) 0.4 % (0.0-5.0); HEMATOCRIT 32.9 % (42-54); LYMPHOCYTES % (AUTO) 11.9 % (21.0-51.0); MEAN CORPUSCULAR HEMOGLOBIN 31.9 pg (27.0-33.0); MEAN CORPUSCULAR HGB CONC 35.7 g/dL (32.0-36.0); MEAN CORPUSCULAR VOLUME 89.2 fL (79-99); MONOCYTES % (AUTO) 8.9 % (3.0-13.0); NEUTROPHILS % (AUTO) 77.8 % (40.0-77.0); PLATELET COUNT (AUTO) 206 K/uL (130-400); RED BLOOD CELL COUNT(AUTO) 3.69 MIL/uL (4.50-6.20); RED CELL DISTRIBUTION WIDTH 12.1 % (11.0-15.5)
[2017-09-10 04:03] LABS: POTASSIUM 3.2 mmol/L (3.5-5.1)
[2017-09-10] MEDS: POTASSIUM CHLORIDE 20MEQ/100ML 100 ML IV PRN (04:33)
[2017-09-10] MEDS: INSULIN HUMULIN R 100 UNIT/ML 3ML SQ SCH ×4 (07:30→21:00)
[2017-09-10] MEDS: FUROSEMIDE 20 MG TABLET PO SCH ×2 (09:02→17:16)
[2017-09-10] MEDS: HYDROCHLOROTHIAZIDE 25 MG TABLET PO SCH (09:02)
[2017-09-10] MEDS: METOPROLOL TARTRATE 50 MG TAB PO SCH ×2 (09:03→22:35)
[2017-09-10] MEDS: DOCUSATE SODIUM 100 MG CAP PO SCH ×2 (09:03→22:36)
[2017-09-10] MEDS: POTASSIUM CHLORIDE 20 MEQ ERTAB PO SCH ×2 (09:03→22:38)
[2017-09-10] MEDS: LOSARTAN 50 MG TABLET PO SCH (09:03)
[2017-09-10] MEDS: ASPIRIN 81MG TAB.CHEW PO SCH (09:03)
[2017-09-10] MEDS: PANTOPRAZOLE SODIUM 40 MG TABLET.DR PO SCH (09:03)
[2017-09-10] MEDS: ENOXAPARIN SODIUM 30 MG/0.3 ML SQ SCH (09:08)
[2017-09-10] MEDS: TRAMADOL HCL 50 MG TABLET PO PRN (10:51)
[2017-09-10] MEDS: MAGNESIUM HYDROXIDE 30 ML/UDCUP PO PRN (17:16)
[2017-09-10] MEDS ORDERED: POTASSIUM CHLORIDE 10% ELIXIR 20 MEQ/15 ML UDCUP PO PRN (17:30)
[2017-09-10] MEDS: POTASSIUM CHLORIDE 20 MEQ ERTAB PO PRN (18:59)
[2017-09-10] MEDS: ATORVASTATIN CALCIUM 20 MG TABLET PO SCH (22:36)
[2017-09-10] MEDS ORDERED: POTASSIUM CHLORIDE 10 MEQ/TAB.SA PO ONE ×2 (23:47)
[2017-09-11] MEDS: METOCLOPRAMIDE 10 MG/2 ML VIAL IVP SCH ×3 (01:20→13:55)
[2017-09-11] MEDS ORDERED: POTASSIUM CHLORIDE 10 MEQ/TAB.SA PO ONE ×4 (02:32→06:51)
[2017-09-11 04:14] VITALS: BP 161/86
[2017-09-11] MEDS ORDERED: LACTULOSE 20 GM/30 ML UDCUP PO SCH (06:15)
[2017-09-11 06:33] LABS: POTASSIUM 3.4 mmol/L (3.5-5.1)
[2017-09-11] MEDS: INSULIN HUMULIN R 100 UNIT/ML 3ML SQ SCH ×2 (07:30→13:09)
[2017-09-11 07:35] VITALS: BP 130/86
[2017-09-11] MEDS: HYDROCHLOROTHIAZIDE 25 MG TABLET PO SCH (09:20)
[2017-09-11] MEDS: ASPIRIN 81MG TAB.CHEW PO SCH (09:20)
[2017-09-11] MEDS: LOSARTAN 50 MG TABLET PO SCH (09:20)
[2017-09-11] MEDS: PANTOPRAZOLE SODIUM 40 MG TABLET.DR PO SCH (09:20)
[2017-09-11] MEDS: DOCUSATE SODIUM 100 MG CAP PO SCH (09:20)
[2017-09-11] MEDS: FUROSEMIDE 20 MG TABLET PO SCH (09:21)
[2017-09-11] MEDS: POTASSIUM CHLORIDE 20 MEQ ERTAB PO SCH (09:21)
[2017-09-11] MEDS: METOPROLOL TARTRATE 50 MG TAB PO SCH (09:21)
[2017-09-11] MEDS: ENOXAPARIN SODIUM 30 MG/0.3 ML SQ SCH (09:24)
[2017-09-11] MEDS: MAGNESIUM HYDROXIDE 30 ML/UDCUP PO PRN (09:30)
[2017-09-11 12:00] VITALS: BP 132/84
[2017-09-11] MEDS: POTASSIUM CHLORIDE 20 MEQ ERTAB PO PRN (13:07)
== END 2017-09-11 15:30 | DRG 233 ==
LOC: EDH 07:25 → OBSVTOIN 12:40 → EDHIP 12:40 → 2DH 13:28 → 2CV 09-06 08:00 → 2CH 09-06 18:20 → 2AH 09-07 15:20
PROVIDERS: ADMIT Family Medicine; ATTEND Family Medicine
PROC: 4A023N7 Measurement of Cardiac Sampling and Pressure, Left Heart, Percutaneous Approach (ICD-10-PCS; 2017-09-05)
PROC: B2111ZZ Fluoroscopy of Multiple Coronary Arteries using Low Osmolar Contrast (ICD-10-PCS; 2017-09-05)
PROC: B2151ZZ Fluoroscopy of Left Heart using Low Osmolar Contrast (ICD-10-PCS; 2017-09-05)
PROC: B4101ZZ Fluoroscopy of Abdominal Aorta using Low Osmolar Contrast (ICD-10-PCS; 2017-09-05)
PROC: 021109W Bypass Coronary Artery, Two Arteries from Aorta with Autologous Venous Tissue, Open Approach (ICD-10-PCS; 2017-09-06)
PROC: 06BQ4ZZ Excision of Left Saphenous Vein, Percutaneous Endoscopic Approach (ICD-10-PCS; 2017-09-06)
PROC: 0BH17EZ Insertion of Endotracheal Airway into Trachea, Via Natural or Artificial Opening (ICD-10-PCS; 2017-09-06)
PROC: 5A1935Z Respiratory Ventilation, Less than 24 Consecutive Hours (ICD-10-PCS; 2017-09-06)
PROC: 02100Z9 Bypass Coronary Artery, One Artery from Left Internal Mammary, Open Approach (ICD-10-PCS; principal; 2017-09-06 07:00)
PROC: 02100Z8 Bypass Coronary Artery, One Artery from Right Internal Mammary, Open Approach (ICD-10-PCS; 2017-09-06 07:00)
DX: I25.110 Atherosclerotic heart disease of native coronary artery with unstable angina pectoris (principal); I21.4 Non-ST elevation (NSTEMI) myocardial infarction; D62 Acute posthemorrhagic anemia; I10 Essential (primary) hypertension; E11.9 Type 2 diabetes mellitus without complications; F10.10 Alcohol abuse, uncomplicated; F17.200 Nicotine dependence, unspecified, uncomplicated; D72.829 Elevated white blood cell count, unspecified; E78.5 Hyperlipidemia, unspecified; E83.51 Hypocalcemia; E87.6 Hypokalemia; E87.70 Fluid overload, unspecified; Z79.82 Long term (current) use of aspirin; Z79.899 Other long term (current) drug therapy; Z86.73 Personal history of transient ischemic attack (TIA), and cerebral infarction without residual deficits; Z83.3 Family history of diabetes mellitus; Z82.49 Family history of ischemic heart disease and other diseases of the circulatory system; Z80.9 Family history of malignant neoplasm, unspecified
CPT/HCPCS: 36415; 70496; 70498; 71045; 75625; 80048; 80053; 80061; 81001; 82330; 82435; 82550; 82553; 82803; 82947; 82948; 83036; 83605; 83735; 83874; 84100; 84132; 84295; 84484; 85018; 85025; 85027; 85347; 85610; 85730; 86850; 86900; 86901; 86922; 93005; 93458; 93880; 93925; 94002; 94010; 94150; 97039; 99291; A4218; A4344; A7048; C1769; C1894; J0171; J0360; J0610; J0697; J1644; J1650; J1815; J1885; J2001; J2250; J2260; J2270; J2405; J2440; J2704; J2710; J2720; J2765; J3010; J3475; J3480; J3490; J7030; J7040; P9045; Q9967

== ENCOUNTER 2019-05-21 07:20 | Emergency (ER) | payer OTHER ==
[~2019-05-21 07:20] MED LIST: ASPI-1197 PO; ATOR10TA69 PO; DOCU-272 PO; HYDR-4030 PO; IBUP200C5 PO; LORA0.5T2 PO; LOSA50TA64 PO; METF-444 PO; METO25TA6 PO; TRAZ-185 PO
[2019-05-21] MEDS ORDERED: LIDOCAINE 5% TOPICAL PATCH TP ONE (07:56)
[2019-05-21] MEDS ORDERED: ORPHENADRINE CITRATE 30 MG/ML ML ONE (07:56)
[2019-05-21] MEDS ORDERED: MORPHINE SULFATE 4 MG/1ML SYG ONE (07:57)
[2019-05-21] MEDS ORDERED: KETOROLAC TROMETHAMINE 30MG/ML ONE (10:05)
[2019-05-21] MEDS ORDERED: DEXAMETHASONE SOD PHOSPHATE 4 MG/ML 1ML VIAL ONE (10:40)
[2019-05-21] MEDS ORDERED: SODIUM CHLORIDE 0.9% 1000ML 1,000 ML IV ONE (11:07)
== END 2019-05-21 10:55 | disposition home or self-care (01) ==
LOC: EDH 07:20
DX: M51.16 Intervertebral disc disorders with radiculopathy, lumbar region (principal); E11.9 Type 2 diabetes mellitus without complications; E78.5 Hyperlipidemia, unspecified; I10 Essential (primary) hypertension; I25.10 Atherosclerotic heart disease of native coronary artery without angina pectoris; Z86.73 Personal history of transient ischemic attack (TIA), and cerebral infarction without residual deficits; Z87.891 Personal history of nicotine dependence
CPT/HCPCS: 72131; 96372 ×4; 99284; J1100; J1885; J2270; J2360; J7030

== ENCOUNTER 2023-04-14 10:31 | Emergency (ER) | payer OTHER ==
[~2023-04-14] VITALS: Ht 208.3 cm; Wt 85.7 kg
[~2023-04-14 10:31] MED LIST changes: -DOCU-272 PO; +DOCU-280 PO
[2023-04-14] MEDS ORDERED: KETOROLAC 15MG/ML VIAL (15MG/ML) IM ONE (13:30)
[2023-04-14] MEDS ORDERED: DEXAMETHASONE SOD PHOSPHATE 4 MG/ML 1ML VIAL IM ONE (13:30)
[2023-04-14 14:59] LABS: BASOPHILS # (AUTO) 0.04 K/uL (0.00-0.20); BASOPHILS % (AUTO) 0.7 % (0.0-5.0); EOSINOPHILS # (AUTO) 0.13 K/uL (0.00-0.70); EOSINOPHILS % (AUTO) 2.2 % (0.0-8.0); HEMATOCRIT 50.1 % (42-54); IMMATURE GRANULOCYTE ABSOLUTE 0.02 K/uL (0-1); LYMPHOCYTES # (AUTO) 1.2 K/uL (1.0-4.8); LYMPHOCYTES % (AUTO) 19.4 % (21.0-51.0); MEAN CORPUSCULAR HEMOGLOBIN 31.2 pg (27.0-33.0); MEAN CORPUSCULAR HGB CONC 35.7 g/dL (32.0-36.0); MEAN CORPUSCULAR VOLUME 87.4 fL (79-99); MONOCYTES # (AUTO) 0.5 K/uL (0.1-1.0); NEUTROPHILS # (AUTO) 4.1 K/uL (1.8-7.7); NEUTROPHILS % (AUTO) 69.4 % (40.0-77.0); PLATELET COUNT (AUTO) 183 K/uL (130-400); RED BLOOD CELL COUNT(AUTO) 5.73 MIL/uL (4.50-6.20); RED CELL DISTRIBUTION WIDTH 13.2 % (11.0-15.5)
[2023-04-14 15:10] LABS: POTASSIUM 3.9 mmol/L (3.5-5.1)
[2023-04-14 15:15] LABS: ALBUMIN 3.9 g/dL (3.5-5.0); BILIRUBIN,TOTAL 0.8 mg/dL (0.2-1.0)
[2023-04-14 15:21] VITALS: BP 158/88; PULSE 82; RESP 16; O2SAT 98
[2023-04-14] MEDS ORDERED: CYCL5TAB PO (15:26)
[2023-04-14] MEDS ORDERED: IBUP-2070 PO (15:26)
== END 2023-04-14 15:30 | disposition home or self-care (01) ==
LOC: EDH 10:31
DX: M54.42 Lumbago with sciatica, left side (principal); M41.9 Scoliosis, unspecified
CPT/HCPCS: 99284; 80053; 85025; 36415; 72100; 96372 ×2; J1100; J1885